=== PATIENT | female | born 1950 | race Caucasian/White ===

== ENCOUNTER → 2021-02-27 | Outpatient (CLI) | payer MEDICARE, OTHER ==
--- NOTE | 2021-02-27 13:51 | RAD ---
DXA BONE DENSITY AXIAL History: Reason: SCREENING, OV FAILURE / Spl. Instructions: / History: Postmenopausal Comparison: None. TECHNIQUE: Dual energy x-ray absorptiometry of the lumbar spine and right hip was performed. T-score of average bone mineral density based was calculated based on standard deviations above or below the expected young adult normal value. Diagnostic definitions were established by the [employer]. FINDINGS: The average bone mineral density associated with L1-L4 is 1.010 g/cm^2, corresponding with a T-score of -1.4. The average total bone mineral density associated with right hip is 0.806 g/cm^2, corresponding with a T-score of -1.2. Refer to the worksheets for full detail. IMPRESSION: 1. Osteopenia. Average bone mineral density yields a T-score between -1.0 and -2.5. Fracture risk is increased. Electronically signed by: Jose Perez DO (02/27/2021 1:49 PM) [id number]
--- NOTE | 2021-03-06 09:56 | RAD ---
Digital bilateral screening mammogram with tomography dated 02/27/2021. INDICATION: 70 years of age asymptomatic female patient presents for screening mammography. TECHNIQUE: Full field craniocaudal and mediolateral oblique images of both breasts were obtained usi ng digital technique with tomosynthesis and also analyzed with computer-aided detection software. . COMPARISON: 09/23/2018 04/27/2012 and 03/06/2016. BREAST COMPOSITION: Category B: There are scattered fibroglandular densities. FINDINGS: There are couple of small circumscribed nodules within each breast, stable from prior study. No suspi cious mass or clustered calcification. No architectural distortion. Parenchymal pattern is stable. IMPRESSION: Stable bilateral mammogram. RECOMMENDATION: Annual screening mammography is recommended, unless clinically indicated sooner based on symptoms or change in physical exam. BIRADS 2: BENIGN This study was interpreted with the benefit of Computerized Aided Detection (CAD). Recommend follow-up screening in one year. Patient information is entered into the reminder system with a target due date for the next screening mammogram. Mammography is the most sensitive method for finding small breast cancers, but it does not detect the m all and is not a substitute for careful clinical examination. A negative mammogram does not negate a clinically suspicious finding and should not result in delay in biopsying a clinically suspicious a bnormality. "Our facility is accredited by the [employer] Mammography Program." Electronically signed by: Jakub Cee MD (03/06/2021 9:54 AM) [id number]
== END ==
LOC: MAMMO 09:45
PROVIDERS: ATTEND Internal Medicine
DX: Z12.31 Encounter for screening mammogram for malignant neoplasm of breast (principal); M85.88 Other specified disorders of bone density and structure, other site
CPT/HCPCS: 77063; 77067; 77080